=== PATIENT | female | born 1960 | race African-American/Black ===

== ENCOUNTER 2021-02-07 11:43 | Emergency (ER) | payer MEDICAID ==
[~2021-02-07] VITALS: Ht 165.1 cm; Wt 78.0 kg
[2021-02-07 13:59] LABS: CLARITY URINE TURBID (CLEAR); COLOR URINE DK YELLOW (YELLOW); KETONES URINE NEGATIVE (NEGATIVE); LEUKOCYTE ESTERASE URINE 2+ (NEGATIVE); NITRITE URINE NEGATIVE (NEGATIVE); OCCULT BLOOD URINE 3+ (NEGATIVE); PH URINE 5.5 (4.5-8.0); PROTEIN URINE 1+ (NEGATIVE); SPECIFIC GRAVITY URINE 1.022 (1.005-1.030); UROBILINOGEN URINE 0.2 E.U./dL (0.2-1.0)
[2021-02-07] MEDS ORDERED: ACET-2708 MT (14:40)
[2021-02-07] MEDS ORDERED: NITR-87 MT (14:40)
[2021-02-07] MEDS ORDERED: IBUP-2028 MT (14:41)
[2021-02-07] MEDS ORDERED: NITROFURANTOIN 100MG M/M CAPSULE PO ONE (14:45)
[2021-02-07] MEDS ORDERED: ACETAMINOPHEN 325MG TABLET PO ONE (14:45)
[2021-02-07 15:00] VITALS: BP 125/65
[2021-02-07] MEDS ORDERED: NITROFURANTOIN 100MG M/M CAPSULE PO NR (15:00)
== END 2021-02-07 15:00 | disposition home or self-care (01) ==
LOC: ER 11:43
DX: N39.0 Urinary tract infection, site not specified (principal); J44.9 Chronic obstructive pulmonary disease, unspecified; E78.00 Pure hypercholesterolemia, unspecified; I10 Essential (primary) hypertension; Z90.710 Acquired absence of both cervix and uterus; Z98.890 Other specified postprocedural states; Z90.49 Acquired absence of other specified parts of digestive tract; Z79.899 Other long term (current) drug therapy
CPT/HCPCS: 81003; 99283

== ENCOUNTER → 2024-02-18 | Day surgery (SDC) | payer MEDICAID ==
[~2024-02-18] VITALS: Ht 165.1 cm; Wt 77.6 kg
[~2024-02-18] MED LIST: ACET-2708 MT; ACETAMINOPHEN 325MG TABLET PO PRN; AMLO10TA4 PO; ASPI-1497 PO; ATOR-2 PO; ATROPINE SULFATE 1MG/10ML SYR IV PRN; CETI-89 PO; CLOP-31 PO; EZET10TA81 PO; FENTANYL CITRATE/PF 50MCG/ML 2ML VIAL ONE; HEPARIN 1000 UNITS/ML 10ML ONE; IBUP-2028 MT; IODIXANOL 320MG/ML 100 ML BOTTLE IV ONE; LIDOCAINE HCL 1% 20ML VIAL ONE; METO75TA PO; MIDAZOLAM HCL 2 MG/2 ML VIAL ONE; MONT-46 PO; NITR-87 MT; ONDANSETRON HCL 4MG/2ML INJ IV PRN; VITA400T9 PO
[2024-02-18 07:02] LABS: POTASSIUM 4.8 mEq/L (3.5-5.1)
== END | disposition home or self-care (01) ==
LOC: CCL 06:14
PROVIDERS: ATTEND Specialist
DX: R94.39 Abnormal result of other cardiovascular function study (principal); I25.10 Atherosclerotic heart disease of native coronary artery without angina pectoris; I11.9 Hypertensive heart disease without heart failure; E78.5 Hyperlipidemia, unspecified; E11.9 Type 2 diabetes mellitus without complications; I77.9 Disorder of arteries and arterioles, unspecified; Z79.02 Long term (current) use of antithrombotics/antiplatelets; Z79.899 Other long term (current) drug therapy; Z88.0 Allergy status to penicillin; Z98.890 Other specified postprocedural states
CPT/HCPCS: 93458; 84132; 36415; C1769; J3010; Q9967; J1644 ×2; J3490; J2250; C1887; 99152; 99153; G0500